=== PATIENT | female | born 1955 | race Caucasian/White ===

== ENCOUNTER 2025-01-25 10:18 | Day surgery (SDC) | payer MEDICARE, OTHER, SELFPAY ==
[2025-01-25] VITALS (22 sets, daily range): BP systolic 77–127; BP diastolic 40–84; BMI 29.2
[2025-01-25 14:08] LABS: ACT-LR - POC 335 Seconds (116-155)
[2025-01-25 14:31] LABS: ACT-LR - POC 351 Seconds (116-155)
[2025-01-25 14:46] LABS: ACT-LR - POC 318 Seconds (116-155)
[2025-01-25 15:11] LABS: ACT-LR - POC 332 Seconds (116-155)
--- NOTE | 2025-01-25 16:09 | PTCARENOTE ---
PT BP LOW. CHIP APPLYING MACHINE TENDER AT BEDSIDE AND TREATED BP WITH BOLUS OF LEVO. CHIP APPLYING MACHINE TENDER MADE DR CARRILLO AWARE OF BP AND TREATMENT. PT SLEEPY BUT RESPONDS TO NAME. PT WITHOUT COMPLAINTS.
--- NOTE | 2025-01-25 16:29 | ITS.CL.ABL ---
Welding Machine Tender - Ablation
Ablation
Procedure Report:
ELECTROPHYSIOLOGIC STUDY AND POSSIBLE ABLATION
DATE: January 25, 2025
Primary Care Provider: Dr Mariola Abbott
Primary Web Merchandiser: Dr Steve Dave
INDICATION:
Symptomatic Atrial Fibrillation.
Persistent
HISTORY: See H and P.
Symptomatic AF, poorly controlled with attempted medical therapy
She has previously undergone 2 left atrial ablations for atrial fibrillation and has recurred with symptomatic atrial fibrillation despite medical therapy.
HAS-BLED:
Age
CHADSVASc: 3
HTN
Age
F Gender
PRESENTING RHYTHM: AF
HISTORY: See H and P.
Symptomatic AF, poorly controlled with attempted medical therapy.
ANTICOAGULATION: Apixaban 5 mg twice daily
'TIME-OUT': called and confirmed.
SEDATION/ANESTHESIA: provided via the anesthesia department using general anesthesia.
PROCEDURE:
Ultrasound Guidance with real-time visualization of needle insertion and vessel patency performed by al for femoral venous Vascular Access.
Under real-time US guidance, the needle was advanced with negative pressure into the vein. The needle was seen entering the vessel lumen with a good return of dark red flow, the syringe was removed, non-pulsatile, dark red blood low was noted and
the wire was passed without difficulty, then the needle was removed. US confirmed the wire was in the vein, not going into an artery,
Images were taken and saved for the patient's permanent record. Imaging findings typical femoral venous anatomy. Direct visualization of needle puncture into the femoral vein was observed and recorded.
A decapolar CS catheter was placed within the CS for mapping and pacing.
The intracardiac ultrasound catheter was positioned in the RA for continuous intracardiac ultrasound imaging.
Heparin bolus and infusion to target ACT at 300 -350 seconds was administered. Transseptal puncture was performed. This entailed advancing a sheath with dilator into the superior vena cava and withdrawing both (monitoring intracardiac ultrasound,
fluoroscopy and tip pressure) with the tip oriented toward the atrial septum. The fossa ovalis was engaged (indicated by sudden displacement of the sheath tip as well as tenting of the fossa seen on intracardiac ultrasound).
Transseptal puncture was performed. Left atrial catheter position was confirmed by echocardiographic imaging, pressure monitoring (LA mean pressure 16 mm Hg) and fluoroscopy. The sheath was advanced over the dilator and positioned in the left
atrium.
The [employer]era multipolar mapping/ablation Sphere-9 catheter was positioned through the transseptal sheath for high density mapping.
Geometry and voltage mapping was performed using the [employer] mapping system for three-dimensional electroanatomical mapping.
Catheter positioning was guided and confirmed using both I.C.E. and fluoroscopy.
Mapping finds there is reconnection at the left sided pulmonary veins at the left inferior pulmonary vein towards its inferior septal quadrant and at the left superior pulmonary vein towards its septal quadrant. There is electrical reconnection at
the right superior pulmonary vein towards its anterior septal quadrant and the right inferior pulmonary vein towards its inferior quadrant there is also incomplete electrical isolation of the posterior wall of the left atrium.
PV isolation approach was used to electrically reisolate the pulmonary veins (LSPV, LIPV, RSPV, RIPV).
Additional energy applications/additional ablation set was required to accomplish wide area circumferential ablation around each of the pulmonary vein sets and additionally ablation to accomplish LA posterior wall ablation.
Remapping with the Sphere-9 catheter found that all PVPs were eliminated at each vein demonstrating entrance block. Also pacing around the the circumference of the ostia was performed at 10 ma and 2.0 msec output to assess for exit block. This
demonstrated electrical isolation at each of the pulmonary vein ostia (LSPV, LIPV, RSPV, RIPV). There is also entrance and exit block at the LA posterior wall.
Programmed electrostimulation failed to induce any sustained arrhythmias.
While the veins were isolated and there is posterior wall isolation with no inducible arrhythmias, remapping did demonstrate less than wide area circumferential ablation around the anterior septal quadrant of the right superior pulmonary vein. This
required additional pulsed electric field energy delivery which was successful at accomplishing wide area circumferential ablation.
I.C.E. :
Pre-Ablation Post-Ablation
LVEF: 55% 55 %
WMA: none none
Pericardial effusion: none none
COMPLICATIONS:
None
SUMMARY:
- Mapping and ablation to isolate the PVs
- Additional AF ablation set after PVI.
- 3-D Electroanatomical Mapping
- Intracardiac Ultrasound
- Ultrasound guidance for vascular access
Post ablation, I discussed today's findings and results with the patient's .
RECOMMENDATIONS:
- Observe in monitored bed.
- Maintain oral anticoagulation.
- Office visit with Hallie CARL is scheduled for 04/18/25.
- Continue cardiovascular care with Dr Dave
Copy to:
Dr Mariola Abbott
Dr Steve Dave
[2025-01-25] MEDS: NSS 500 IV (16:35)
--- NOTE | 2025-01-25 16:35 | PTCARENOTE ---
BARBARA FLATCAR WHACKER AWARE OF BP ISSUE. BP 77/45 WITH MAP OF 56. NSS 250 IV BOLUS ORDERED.
--- NOTE | 2025-01-25 18:22 | PTCARENOTE ---
PT BP HOVERING 80'S-90'S OVER 40'S-50'S. PT FEELING SLIGHTLY NAUSEOUS AND FEELS LIKE SHE COULD NOT GET OUT OF BED. DR SAUCEDA AWARE AND AT BEDSIDE. PT TO BE ADMITTED TO IVU PER DR SAUCEDA
[2025-01-25] MEDS: PEPCID 10 MG PO (22:31)
[2025-01-25] MEDS: ELIQUIS 5 MG PO (22:32)
[2025-01-26] VITALS (7 sets, daily range): BP systolic 89–128; BP diastolic 44–61; BMI 30.2
--- NOTE | 2025-01-26 02:06 | PTCARENOTE ---
Received pt from lab assistant @[id number]. Pt is AAOX3 SR/SB on the monitor. BP 90/53 Rt fem groin site dressing c/d/i no bleeding no hematoma. Pt able to ambulate to bathroom without difficulty. Call Mehta within reach. Pt was instructed on POC verbalized
understanding.
[2025-01-26 03:05] LABS: Hematocrit 31.1 % (37.0-47.0); Hemoglobin 10.4 g/dL (12.0-16.0); Mean Corp Hgb Conc. 33.4 g/dL (33.0-37.0); Mean Corpuscular Volume 86.6 fL (81.0-99.0); Mean Platelet Volume 11.9 fL (7.4-10.4); Platelet Count 167 10^3/uL (130-400); Red Blood Cell Count 3.59 10^6/uL (4.20-5.40); Red Cell Dist. Width 13.8 % (11.5-14.5); White Blood Cell Count 7.1 10^3/uL (4.8-10.8)
[2025-01-26 03:20] LABS: Blood Urea Nitrogen 17 mg/dl (7-17); Calcium 8.5 mg/dl (8.4-10.2); Carbon Dioxide 25 mmol/L (22-30); Chloride 108 mmol/L (98-107); Estimated Creatinine Clearance 65 ml/min; Glucose 131 mg/dl (70-99); Magnesium 2.1 mg/dl (1.6-2.3); Potassium 4.6 mmol/L (3.5-5.1); Sodium 140 mmol/L (135-145); eGFR > 60.00
[2025-01-26] MEDS: SYNTHROID 75 MCG PO (05:29)
[2025-01-26 07:48] LABS: ACT-LR - POC > 397 Seconds (116-155)
[2025-01-26] MEDS: SYMBICORT 80/4.5 MCG INHALER 2 PUFF INH (08:01)
[2025-01-26] MEDS: ELIQUIS 5 MG PO (08:17)
[2025-01-26] MEDS: CYMBALTA DELAYED RELEASE 40 MG PO (08:17)
[2025-01-26] MEDS: LIPITOR 10 MG PO (08:17)
--- NOTE | 2025-01-26 08:58 | CM ---
Reviewed chart. Met with Mrs. Tran to review discharge plans. She states prior to admission she resides with her spouse in a two story home with three steps to enter. She states she has full flight of steps to get to bedroom/full bathroom. She
states she has a powder room on the first floor. She states prior to admission she was independent with ambulation and adls. She states she does not have any DME in the home. She states she has a prescription plan and uses [facility]. Medical
work-up in progress. The discharge plan is to return home with her spouse when medically stable.
--- NOTE | 2025-01-26 09:56 | W.PN.CARDCBS ---
Addendum entered and electronically signed by Garcia Altman MD 01/26/25 10:09:
Patient seen and examined
Agree with GLASS LAMINATING OPERATOR note and assessment
Agree with GLASS LAMINATING OPERATOR plan
Exam:
Alert and x 3
Nonfocal neurologically
JVP 6
Cor regular no murmur
Lungs clear to auscultation bilaterally
Abdomen soft nontender positive bowel sounds
No extremity edema
Impression:
Symptomatic persistent Afib
Prior PVI 2018 and 2022
post redo PFA/PVI 01/25/25
HTN
HLD
GERD
Hypothyroidism
Fibromyalgia
Obesity
Plan:
post ablation had mild hypotension d/t anesthesia
bp improved this am
groin stable
tele SR with PVC's
OAC Eliquis
resume metoprolol, held last night
Activity restrictions reviewed
f/u DCA 3 mo
home today
Original Note:
Today's Communication / Plan
-
stable for d/c home
Impression / Plan
-
Primary Care Provider: Dr Mariola Abbott
Primary Microarray Operations Vice President: Dr Steve Dave
Impression:
Symptomatic persistent Afib
Prior PVI 2018 and 2022
post redo PFA/PVI 01/25/25
HTN
HLD
GERD
Hypothyroidism
Fibromyalgia
Obesity
Plan:
post ablation had mild hypotension d/t anesthesia
bp improved this am
groin stable
tele SR with PVC's
OAC Eliquis
resume metoprolol, held last night
Activity restrictions reviewed
f/u DCA 3 mo
home today
Progress Note - Microarray Operations Vice President
Subjective
Date of Service: January 26, 2025
feels better today, no cp, sob
Objective
Labs:
01/26/25 02:39
01/26/25 02:39
Labs
Hgb 10.4 g/dL (12.0-16.0) L 01/26/25 02:39
Hct 31.1 % (37.0-47.0) L 01/26/25 02:39
Plt Count 167 10^3/uL (130-400) 01/26/25 02:39
Sodium 140 mmol/L (135-145) 01/26/25 02:39
Potassium 4.6 mmol/L (3.5-5.1) 01/26/25 02:39
BUN 17 mg/dl (7-17) 01/26/25 02:39
Creatinine 0.8 mg/dL (0.6-1.0) 01/26/25 02:39
Glucose 131 mg/dl (70-99) H 01/26/25 02:39
Vital Signs and I&O:
Vital Signs
Temp Pulse Resp BP Pulse Ox
98.6 F 80 20 104/51 98
01/26/25 08:33 01/26/25 09:15 01/26/25 08:33 01/26/25 07:51 01/26/25 08:33
Vital Signs
Temp Pulse Resp BP Pulse Ox
98.6 F 80 20 104/51 98
01/26/25 08:33 01/26/25 09:15 01/26/25 08:33 01/26/25 07:51 01/26/25 08:33
Intake & Output
01/24/25 01/25/25 01/26/25 01/27/25
06:59 06:59 06:59 06:59
Intake Total 1849
Balance 1849
Physical Exam
Physical Exam
NAD, AOX3
S1, S2, RRR
CTAB, non labored
SNTND Bsx4
R fem site c/d/i no HT, soft
--- NOTE | 2025-01-26 12:07 | PTCARENOTE ---
Patient discharged, teaching provided, patient verbalized understanding. IV and telemetry removed. BP 128/60 sitting. coming to take patient home today
--- NOTE | 2025-01-26 12:16 | PTCARENOTE ---
Patient escorted to [facility] in a wheelchair
--- NOTE | 2025-01-26 15:13 | W.DS.TRANS ---
DC Summary - Ceramic Tile Setter
-
Discharge Instructions:
Sleep Apnea Risk Low
Discharge Diagnosis/Procedures Atrial fibrillation post ablation
Diet Low Cholesterol
Driving Restrictions No driving for 24 hours
Instructions:
Stand-Alone Forms: DC Instructions- Cath/EP Lab
Changes to Home Medications: No
Discharge Medications:
DC Medications w/original date entered in [employer]
albuterol sulfate 90 mcg/actuation aerosol inhaler 2 puff inhalation PRN PRN Asthma 11/22/18
apixaban 5 mg tablet (Eliquis) 5 mg PO BID Blood Clot Prevention/Tx 11/22/18
atorvastatin 10 mg tablet 10 mg PO DAILY High Cholesterol 11/22/18
amlodipine 5 mg tablet 5 mg PO DAILY 01/25/25
duloxetine 20 mg capsule,delayed release 40 mg PO DAILY 01/25/25
famotidine 10 mg tablet 10 mg PO HS 01/25/25
fluticasone furoate 100 mcg-vilanterol 25 mcg/dose inhalation powder (Breo Ellipta) 1 inh inhalation DAILY 01/25/25
levothyroxine 75 mcg tablet 75 mcg PO DAILY 01/25/25
metoprolol succinate 25 mg tablet,extended release 24 hr (Toprol XL) 25 mg PO DAILY Arrhythmia 01/25/25
Home Medication Changes
Pending Results: No
== END 2025-01-26 12:34 | disposition home or self-care (01) ==
LOC: CATH 10:18
PROVIDERS: Nurse Practitioner Adult Health; ATTENDING PHYSICIAN Internal Medicine Cardiovascular Disease; FAMILY PHYSICIAN Family Medicine; OTHER PHYSICIAN Internal Medicine Interventional Cardiology
DX: I48.19 Other persistent atrial fibrillation (principal); I10 Essential (primary) hypertension; E78.5 Hyperlipidemia, unspecified; K21.9 Gastro-esophageal reflux disease without esophagitis; E03.9 Hypothyroidism, unspecified; M79.7 Fibromyalgia; E66.9 Obesity, unspecified; Z79.01 Long term (current) use of anticoagulants; Z79.890 Hormone replacement therapy; Z79.899 Other long term (current) drug therapy
CPT/HCPCS: C1732; C1894; C1766; C1730; C1892; C1759; C1733; 80048; 83735; 85027; 85347; 93005; 93656; 93657; 94640; C1760